=== PATIENT | male | born 1970 | race Caucasian/White ===

== ENCOUNTER 2019-06-08 16:05 | Emergency (ER) | payer BC ==
[2019-06-08] MEDS ORDERED: Albuterol 0.083% 2.5 MG/3 ML Neb Soln ONE (16:25)
[2019-06-08] MEDS ORDERED: Albuterol 0.083% 2.5 MG/3 ML Neb Soln NEB ONE (16:31)
[2019-06-08] MEDS ORDERED: Sodium Chloride 0.9% 1,000 ML IV ONE (16:38)
--- NOTE | 2019-06-08 16:38 | EDM.PDOC ---
ED HPI GENERAL MEDICAL PROBLEM - General Chief Complaint: General Time Seen by Provider: 06/08/19 16:05 Source of Information: Reports: Patient, EMS History Limitations: Reports: No Limitations - History of Present Illness INITIAL COMMENTS - FREE TEXT/NARRATIVE: Patient presents via ambulance after being trapped in a grain bin of corn. The corn had started to slide down the slope toward him and he couldn't keep ahead of it. At the highest it was up on his chest. He and helpers were able to free him somewhat so that he was only buried to mid-abdomen prior to EMS arrival. He then was pulled from the bin. He was partially submerged in corn for 45-50 minutes. He felt "numb and tingly" while in the corn and now just feels cold from the waist down. Denies any LOC. He is starting to cough from the moldy corn and has done this before so expects to have cough, aches and chills for a couple days. He was wearing a mask in the bin most of the time. 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 A source of the clots was not found. Treatments WEARING [employer]PAR[employer]: Reports: Oxygen, See EMS Report - Related Data Allergies Allergy/AdvReac Type Severity Reaction Status Date / Time No Known Drug Allergies Allergy Cannot Verified 06/08/19 16:15 Remember Home Meds: Home Meds Lisinopril 20 mg PO DAILY 06/08/19 [History] Rivaroxaban [Xarelto] 20 mg PO DAILY 06/08/19 [History] ED ROS GENERAL - Review of Systems Review Of Systems: See Below Constitutional: Denies: Fever, Chills, Malaise, Weakness, Diaphoresis HEENT: Denies: Throat Pain, Vision Change Respiratory: Reports: Cough (just starting in last few minutes). Denies: Shortness of Breath Cardiovascular: Denies: Chest Pain, Lightheadedness, Syncope Endocrine: Denies: Fatigue GI/Abdominal: Denies: Abdominal Pain, Diarrhea, Nausea, Vomiting : Denies: Dysuria Musculoskeletal: Denies: Neck Pain, Shoulder Pain, Arm Pain, Back Pain, Hand Pain, Leg Pain, Foot Pain Skin: Denies: Cyanosis (not normally), Jaundice, Mottled, Pallor, Diaphoresis Neurological: Denies: Confusion, Dizziness, Headache, Seizure, Syncope, Trouble Speaking, Difficulty Walking Psychiatric: Denies: Agitation, Anxiety, Confusion ED EXAM, GENERAL - Physical Exam Exam: See Below Exam Limited By: No Limitations General Appearance: Alert, WD/WN, No Apparent Distress Eye Exam: Bilateral Eye: EOMI, Normal Inspection, PERRL Ears: Normal External Exam, Hearing Grossly Normal Nose: Normal Inspection, No Blood Throat/Mouth: Normal Inspection, Normal Lips, Normal Oropharynx, Normal Voice, No Airway Compromise Head: Atraumatic, Normocephalic Neck: Normal Inspection, Full Range of Motion Respiratory/Chest: No Respiratory Distress, Lungs Clear, Normal Breath Sounds, No Accessory Muscle Use, Other (non-productive cough occasionally). No: Crackles, Rales, Rhonchi, Wheezing, Stridor Cardiovascular: Normal Peripheral Pulses, Regular Rate, Rhythm, No Edema, No Gallop, No JVD, No Murmur Peripheral Pulses: 2+: Radial (L), Radial (R), Dorsalis Pedis (L), Dorsalis Pedis (R) Back Exam: Normal Inspection, Full Range of Motion Extremities: Normal Range of Motion, Other (feet are mildly cyanotic with slightly delayed cap refill but good pulses. No pain. Sensation intact.) Neurological: Alert, Oriented, CN II-XII Intact, Normal Cognition, No Motor/ Sensory Deficits. No: Sensory/Motor Deficit Psychiatric: Normal Affect, Normal Mood Skin Exam: Warm, Dry, Intact, No Rash, Cyanosis (of feet as above) Course - Vital Signs Last Recorded V/S: Last Vital Signs Temp 100.2 F 06/08/19 17:00 Pulse 97 06/08/19 17:00 Resp 18 06/08/19 17:00 BP 129/63 06/08/19 17:00 Pulse Ox 97 06/08/19 17:00 - Orders/Labs/Meds Orders: Active Orders 24 hr Category Date Time Status RT Aerosol Therapy [RC] ASDIRECTED Care 06/08/19 16:31 Ordered Labs: Laboratory Tests 06/08/19 06/08/19 Range/Units 16:55 16:55 WBC 6.25 (5.00-10.00) 10^3/uL RBC 4.65 (4.50-6.00) 10^6/uL Hgb 14.9 (13.0-17.0) g/dL Hct 42.4 (40.0-52.0) % MCV 91.2 (82.0-92.0) fL MCH 32.0 H (27.0-31.0) pg MCHC 35.1 (32.0-36.0) g/dL RDW 13.0 (11.5-14.5) % Plt Count 169 (150-400) 10^3/uL MPV 8.9 (7.4-10.4) fL Immature Gran % (Auto) 0.8 (0.0-5.0) % Neut % (Auto) 72.3 H (50.0-70.0) % Lymph % (Auto) 16.3 L (20.0-40.0) % Upton % (Auto) 9.8 H (2.0-8.0) % Eos % (Auto) 0.3 L (1.0-3.0) % Baso % (Auto) 0.5 (0.0-1.0) % Immature Gran # (Auto) 0.05 (0.00-0.50) 10^3/uL Neut # (Auto) 4.52 (2.50-7.00) 10^3/uL Lymph # (Auto) 1.02 (1.00-4.00) 10^3/uL Upton # (Auto) 0.61 (0.10-0.80) 10^3/uL Eos # (Auto) 0.02 L (0.10-0.30) 10^3/uL Baso # (Auto) 0.03 (0.00-0.10) 10^3/uL Sodium 136 (136-145) mmol/L Potassium 4.0 (3.3-5.3) mmol/L Chloride 100 (98-115) mmol/L Carbon Dioxide 25.5 (21.0-32.0) mmol/L Anion Gap 14.5 (5-15) mmol/L BUN 12 (6-25) mg/dL Creatinine 0.91 (0.51-1.17) mg/dL Est Cr Clr Drug Dosing 114.17 mL/min Estimated GFR (MDRD) > 60 mL/min Glucose 106 H (75 - 99) mg/dL Calcium 8.7 (8.7-10.3) mg/dL Creatine Kinase 209 (26-276) U/L CK-MB (CK-2) 1.00 (0.00-4.30) ng/mL Meds: Medications Discontinued Medications Generic Name Dose Route Start Last Admin Trade Name Bryanna PRChidi Reason Stop Dose Admin Albuterol Confirm 06/08/19 16:25 06/08/19 16:55 Proventil Neb Soln Administered 06/08/19 16:26 Not Given Dose 2.5 mg .ROUTE .STK-MED ONE Albuterol 2.5 mg 06/08/19 16:31 06/08/19 16:32 Proventil Neb Soln NEB 06/08/19 16:32 2.5 mg ONETIME ONE Administration Sodium Chloride 1,000 mls @ 999 mls/hr 06/08/19 16:38 06/08/19 16:55 Normal Saline IV 06/08/19 17:38 999 mls/hr .BOLUS ONE Administration - Re-Assessments/Exams Free Text/Narrative Re-Assessment/Exam: 06/08/19 18:04 Lab and Xray are normal. Discussed case with Dr. Yandel Callaway who advised rectal temp and CK. Patient is feeling well now and feet are now pink with brisk cap refill. Legs still feel a little bit cool but much better per patient. Discussed findings and plan with patient. Discharged to home in stable condition. Departure - Departure Time of Disposition: 17:59 Disposition: Home, Self-Care 01 Condition: Good Clinical Impression: Extremity cyanosis, Exposure to mold - Discharge Information Referrals: PCP,Unknown [Primary Care Provider] - Forms: ED Department Discharge Additional Instructions: 1. Drink 8 cups of water daily. 2. Follow up with your PCP or return to ER if you have any problems. - My Orders Last 24 Hours: My Active Orders 06/08/19 16:31 RT Aerosol Therapy [RC] ASDIRECTED - Assessment/Plan Last 24 Hours: My Active Orders 06/08/19 16:31 RT Aerosol Therapy [RC] ASDIRECTED
--- NOTE | 2019-06-08 17:03 | CR ---
[id number] RAD/RAD Chest PA or AP 1V EXAM: SINGLE VIEW CHEST. INDICATION: COUGH COMPARISON: CORRELATION IS MADE WITH THE CAT SCAN OF JULY 22, 2018 FINDINGS: The lungs are clear. The cardiomediastinal contour is stable IMPRESSION: NO ACUTE PROCESS Tan Russ MD 06/08/19 [id number] Thank you for allowing us to participate in the care of your patient.
[2019-06-08 17:32] LABS: ANION GAP 14.5 mmol/L (5-15); CHLORIDE,CL 100 mmol/L (98-115); SODIUM,NA 136 mmol/L (136-145)
== END 2019-06-08 18:10 | disposition home or self-care (01) ==
LOC: KA.ED 16:05
DX: R23.0 Cyanosis (principal); Z77.120 Contact with and (suspected) exposure to mold (toxic); Z79.899 Other long term (current) drug therapy
CPT/HCPCS: 36415; 71045; 80048; 82550; 82553; 85025; 96360; 99285-25; J7030; J7613-GY; Q3014

== ENCOUNTER 2021-01-23 11:30 | Emergency (ER) | payer BC ==
[2021-01-23] MEDS: Sodium Chloride 0.9% 1,000 ML IV SCH (11:55)
[2021-01-23] MEDS: Iopamidol 755 Mg/ML 75 ML Bottle IVPUSH ONE (12:09)
[2021-01-23] MEDS: Sodium Chloride 0.9% 100 ML IV SCH (12:10)
--- NOTE | 2021-01-23 12:11 | EDM.PDOC ---
ED HPI GENERAL MEDICAL PROBLEM - General Stated Complaint: A FIB Time Seen by Provider: 01/23/21 11:58 Source of Information: Reports: Patient, Provider History Limitations: Reports: No Limitations - History of Present Illness INITIAL COMMENTS - FREE TEXT/NARRATIVE: Patient presents with tachycardia. He was seeing the high school math tutor, Dr. Woods for routine follow up today and was found to have HR of 160. He has been seeing him to rule out any coagulopathies following a PE. No coagulopathies have been found but Dr. Minor wants to have a CT to rule out PE today since he has the tachycardia along with a bit of dyspnea. He had a EKG showing sinus tach. Dr. No called me with this info. Patient says the dyspnea is not worse than his mild baseline symptoms. He denies chest pain. Labs from clinic today, CBC, CMP, D-dimer were all normal except glucose of 119. Chest Pain Score (Numeric/FACES): 5 - Related Data Allergies Allergy/AdvReac Type Severity Reaction Status Date / Time No Known Drug Allergies Allergy Cannot Verified 06/08/19 16:15 Remember Home Meds: Home Meds Rivaroxaban [Xarelto] 20 mg PO DAILY 06/08/19 [History] lisinopriL [Lisinopril] 20 mg PO DAILY 06/08/19 [History] Past Medical History HEENT History: Reports: None Cardiovascular History: Reports: Hypertension Respiratory History: Reports: PE Gastrointestinal History: Reports: GERD Musculoskeletal History: Reports: Fracture - Past Surgical History Head Surgeries/Procedures: Reports: None HEENT Surgical History: Reports: Oral Surgery Cardiovascular Surgical History: Reports: None Respiratory Surgical History: Reports: None GI Surgical History: Reports: Colonoscopy, EGD Musculoskeletal Surgical History: Reports: Other (See Below) Other Musculoskeletal Surgeries/Procedures:: elbow and leg fractures fixed Social & Family History - Family History Family Medical History: No Pertinent Family History ED ROS GENERAL - Review of Systems Review Of Systems: See Below Constitutional: Denies: Fever, Malaise, Weakness, Decreased Appetite HEENT: Reports: No Symptoms Respiratory: Denies: Shortness of Breath (nothing unusual), Cough Cardiovascular: Denies: Chest Pain, Lightheadedness, Syncope GI/Abdominal: Denies: Abdominal Pain, Vomiting : Denies: Dysuria Musculoskeletal: Reports: No Symptoms Skin: Reports: No Symptoms Neurological: Denies: Trouble Speaking, Difficulty Walking Psychiatric: Denies: Agitation, Anxiety, Confusion ED EXAM, GENERAL - Physical Exam Exam: See Below Exam Limited By: No Limitations General Appearance: Alert, WD/WN, No Apparent Distress Eye Exam: Bilateral Eye: EOMI, Normal Inspection, PERRL Ears: Normal External Exam, Hearing Grossly Normal Nose: Normal Inspection, No Blood Throat/Mouth: Normal Inspection, Normal Lips, Normal Voice, No Airway Compromise Head: Atraumatic, Normocephalic Neck: Normal Inspection, Full Range of Motion Respiratory/Chest: No Respiratory Distress, Lungs Clear, Normal Breath Sounds Cardiovascular: Regular Rate, Rhythm (tachy originally but normal for about 90 minutes now.), No Murmur Back Exam: Normal Inspection, Full Range of Motion. No: CVA Tenderness (L), CVA Tenderness (R) Extremities: Normal Inspection, Normal Range of Motion Neurological: Alert, Oriented, Normal Cognition, No Motor/Sensory Deficits Psychiatric: Normal Affect, Normal Mood Skin Exam: Warm, Dry, Intact, Normal Color, No Rash Course - Vital Signs Last Recorded V/S: Last Vital Signs Temp Pulse 76 01/23/21 13:00 Resp 19 01/23/21 13:00 BP 104/62 01/23/21 13:00 Pulse Ox 97 01/23/21 13:00 - Orders/Labs/Meds Orders: Active Orders 24 hr Category Date Time Status Sodium Chloride 0.9% [Normal Saline] 1,000 ml Med 01/23/21 11:30 Ordered IV ASDIRECTED Sodium Chloride 0.9% [Normal Saline] 100 ml Med 01/23/21 12:30 Active IV ASDIRECTED Medication Orders Sodium Chloride (Normal Saline) 100 mls @ 200 mls/hr IV ASDIRECTED MARTIN Last Admin: 01/23/21 12:10 Dose: 200 mls/hr Documented by: ROSA Sodium Chloride (Normal Saline) 1,000 mls @ 1,000 mls/hr IV ASDIRECTED MARTIN Stop: 01/23/21 23:59 Last Admin: 01/23/21 11:55 Dose: 1,000 mls/hr Documented by: HEAVEN Labs: Laboratory Tests 01/23/21 Range/Units 11:45 Troponin I High Sens 13.600 (0-76.000) pg/mL Meds: Medications Generic Name Dose Route Start Last Admin Trade Name Freq PRN Reason Stop Dose Admin Sodium Chloride 100 mls @ 200 mls/hr 01/23/21 12:30 01/23/21 12:10 Normal Saline IV 200 mls/hr ASDIRECTED MARTIN Administration Sodium Chloride 1,000 mls @ 1,000 mls/hr 01/23/21 11:30 01/23/21 11:55 Normal Saline IV 01/23/21 23:59 1,000 mls/hr ASDIRECTED MARTIN Administration Discontinued Medications Generic Name Dose Route Start Last Admin Trade Name Bryanna PRN Reason Stop Dose Admin Iopamidol 75 ml 01/23/21 12:18 01/23/21 12:09 Iopamidol 755 Mg/Ml 75 Ml Bottle IVPUSH 01/23/21 12:19 75 ml ONETIME ONE Administration - Re-Assessments/Exams Free Text/Narrative Re-Assessment/Exam: 01/23/21 12:[address], patient was getting IV fluids and spontaneously converted to NSR with HR of 67. 01/23/21 13:54 CT identifies no PE. Troponin is negative. HR continues to run in normal range and patient is feeling fine. He has been given a liter of saline. We discussed findings and recommendations. He will follow up with his PCP next week for recheck of this. Discharged to home in stable condition. 01/23/21 14:01 We did discuss that if he could make some lifestyle changes concerning nutrition and exercise he would likely see improvement in his weight, cardiovascular risk. Departure - Departure Time of Disposition: 13:48 Disposition: Home, Self-Care 01 Condition: Good Clinical Impression: Tachycardia with heart rate 141-160 beats per minute Referrals: Karla Victor MD [Primary Care Provider] - Additional Instructions: Continue drinking at least 8 cups of water daily. Continue your medications as directed. Follow up with your PCP next week to recheck EKG and heart rate. Recheck sooner with PCP or ER if any problems or worsening. Sepsis Event Note (ED) - Focused Exam Vital Signs: Vital Signs Pulse Resp BP Pulse Ox 01/23/21 13:00 76 19 104/62 97 01/23/21 12:46 69 20 104/62 95 01/23/21 12:31 73 20 119/66 01/23/21 12:16 72 20 131/93 H 01/23/21 12:01 78 22 H 130/80 01/23/21 11:46 131 H 18 126/77 97 01/23/21 11:30 157 H 24 H 111/75 - My Orders Last 24 Hours: My Active Orders 01/23/21 11:30 Sodium Chloride 0.9% [Normal Saline] 1,000 ml IV ASDIRECTED 01/23/21 12:30 Sodium Chloride 0.9% [Normal Saline] 100 ml IV ASDIRECTED - Assessment/Plan Last 24 Hours: My Active Orders 01/23/21 11:30 Sodium Chloride 0.9% [Normal Saline] 1,000 ml IV ASDIRECTED 01/23/21 12:30 Sodium Chloride 0.9% [Normal Saline] 100 ml IV ASDIRECTED
--- NOTE | 2021-01-23 12:45 | CT ---
[id number] CT/CTA Chest EXAM: CT ANGIOGRAM CHEST INDICATION: Multiple subsegmental pulmonary emboli without cor pulmonale. COMPARISON: November 17, 2018. DISCUSSION: No pulmonary embolus is identified, but the degree of contrast opacification of the pulmonary arteries limits assessment. Mild bronchial wall thickening compatible with bronchitis. The lungs are clear with no nodule, infiltrate or mass identified.No pleural or pericardial effusion. Normal heart size. No mediastinal, hilar or axillary lymphadenopathy. Degenerative changes throughout the thoracic spine with associated osseous central stenosis at C6-C7. IMPRESSION: 1. Contrast timing mildly limits sensitivity, but no large or central pulmonary emboli are identified. Gama Madison MD 01/23/21 [id number] Thank you for allowing us to participate in the care of your patient.
== END 2021-01-23 14:20 | disposition home or self-care (01) ==
LOC: KA.ED 11:30
DX: R00.0 Tachycardia, unspecified (principal); I10 Essential (primary) hypertension; Z79.899 Other long term (current) drug therapy; Z79.01 Long term (current) use of anticoagulants
CPT/HCPCS: 71275; 84484; 93005; 99284; 99285-25; J7030; Q9967

== ENCOUNTER 2021-11-27 19:35 | Emergency (ER) | payer BC ==
[2021-11-27 21:04] LABS: ANION GAP 12.4 mmol/L (5-15); CHLORIDE,CL 100 mmol/L (98-107); SODIUM,NA 137 mmol/L (136-145)
[2021-11-27] MEDS: Sodium Chloride 0.9% 50 ML IV SCH (21:21)
[2021-11-27] MEDS: Iopamidol 755 Mg/ML 100 ML Bottle IV ONE (21:21)
[2021-11-27] MEDS: Ketorolac 30 MG/ML SDV IVPUSH ONE (21:57)
[2021-11-27] MEDS: Ketorolac 30 MG/ML SDV ONE (21:58)
== END 2021-11-27 22:12 | disposition home or self-care (01) ==
LOC: KA.ED 19:35
DX: S39.81XA Other specified injuries of abdomen, initial encounter (principal); I10 Essential (primary) hypertension; K21.9 Gastro-esophageal reflux disease without esophagitis; Z79.899 Other long term (current) drug therapy; W55.22XA Struck by cow, initial encounter
CPT/HCPCS: 36415; 74177; 80053; 81001; 85025; 96374; 99283; 99284-25; J1885; Q9967

== ENCOUNTER 2023-08-11 08:04 | Day surgery (SDC) | payer BC ==
[~2023-08-11 08:04] MED LIST: Sodium Chloride 0.9% 10 ML Syringe FLUSH PRN
[2023-08-11] MEDS ORDERED: Midazolam 1 MG/ML 2 ML SDV IV ONE (08:05)
[2023-08-11] MEDS ORDERED: Propofol 200 MG/20 ML SDV IV ONE (08:05)
[2023-08-11] MEDS: Sodium Chloride 0.9% 1,000 ML IV SCH (08:31)
[2023-08-11] MEDS ORDERED: Glycopyrrolate 0.2 MG/ML SDV ONE (09:04)
[2023-08-11] MEDS ORDERED: Propofol 200 MG/20 ML SDV ONE ×2 (09:04→09:49)
[2023-08-11] MEDS ORDERED: Midazolam 1 MG/ML 2 ML SDV ONE ×2 (09:04→09:11)
[2023-08-11] MEDS ORDERED: Ketamine 200 MG/20 ML MDV ONE (09:05)
[2023-08-11] MEDS ORDERED: Lidocaine 2% 5 ML SDV ONE (09:05)
== END 2023-08-11 12:23 | disposition home or self-care (01) ==
LOC: KA.SDS 08:04
PROVIDERS: ATTEND Surgery
DX: K21.00 Gastro-esophageal reflux disease with esophagitis, without bleeding (principal); K29.50 Unspecified chronic gastritis without bleeding; K22.70 Barrett's esophagus without dysplasia; K31.A19 Gastric intestinal metaplasia without dysplasia, unspecified site; Z79.82 Long term (current) use of aspirin; Z79.899 Other long term (current) drug therapy
CPT/HCPCS: 00731; 82947; J2250; J2704; J3490; J7030

== ENCOUNTER 2024-01-11 20:37 | Emergency (ER) | payer BC ==
[2024-01-11] MEDS ORDERED: Sodium Chloride 0.9% 10 ML Syringe FLUSH PRN (20:44)
[2024-01-11] MEDS: Ondansetron 4 MG/2 ML SDV IVPUSH ONE (20:50)
[2024-01-11] MEDS: HYDROmorphone 1 MG/ML Syringe IVPUSH ONE (20:51)
[2024-01-11 20:56] LABS: BASOPHILS ABSOLUTE AUTO 0.03 10^3/uL (0.00-0.10); BASOPHILS PERCENT AUTO 0.3 % (0.0-1.0); EOSINOPHILS ABSOLUTE AUTO 0.17 10^3/uL (0.10-0.30); EOSINOPHILS PERCENT AUTO 1.8 % (1.0-3.0); HEMATOCRIT 43.8 % (40.0-52.0); HEMOGLOBIN 15.1 g/dL (13.0-17.0); IMMATURE GRAN ABSOLUTE AUTO 0.05 10^3/uL (0.00-0.50); IMMATURE GRAN PERCENT AUTO 0.5 % (0.0-5.0); LYMPHOCYTES ABSOLUTE AUTO 2.08 10^3/uL (1.00-4.00); LYMPHOCYTES PERCENT AUTO 22.3 % (20.0-40.0); MEAN CORPUSCULAR HEMOGLOBIN 31.1 pg (27.0-31.0); MEAN CORPUSCULAR HGB CONC 34.5 g/dL (32.0-36.0); MEAN CORPUSCULAR VOLUME 90.1 fL (82.0-92.0); MEAN PLATELET VOLUME 9.5 fL (7.4-10.4); MONOCYTES ABSOLUTE AUTO 0.69 10^3/uL (0.10-0.80); MONOCYTES PERCENT AUTO 7.4 % (2.0-8.0); NEUTROPHILS ABSOLUTE AUTO 6.31 10^3/uL (2.50-7.00); NEUTROPHILS PERCENT AUTO 67.7 % (50.0-70.0); PLATELET COUNT,PLT 239 10^3/uL (150-400); RED BLOOD CELL COUNT 4.86 10^6/uL (4.50-6.00); RED CELL DISTRIBUTION WIDTH 13.1 % (11.5-14.5); WHITE BLOOD CELL COUNT,WBC 9.33 10^3/uL (5.00-10.00)
[2024-01-11] MEDS: Sodium Chloride 0.9% 50 ML IV SCH (21:40)
[2024-01-11] MEDS: Iopamidol 755 Mg/ML 100 ML Bottle IV ONE (21:40)
[2024-01-11 21:44] LABS: ALANINE AMINOTRANSFERASE,ALT 24 U/L (14-63); ALBUMIN 3.25 g/dL (3.40-5.00); ALKALINE PHOSPHATASE 82 U/L (46-116); ANION GAP 10.8 mmol/L (5-15); ASPARTATE AMNIOTRANSFERASE,AST 21 U/L (15-37); BILIRUBIN TOTAL 0.6 mg/dL (0.2-1.0); BLOOD UREA NITROGEN,BUN 14 mg/dL (7-18); CALCIUM 8.5 mg/dL (8.7-10.3); CARBON DIOXIDE,CO2 28.5 mmol/L (21.0-32.0); CHLORIDE,CL 102 mmol/L (98-107); CREATININE 0.96 mg/dL (0.51-1.17); GLUCOSE RANDOM 131 mg/dL (70-140); POTASSIUM,K 4.3 mmol/L (3.5-5.1); PROTEIN TOTAL,TP 7.2 g/dL (6.4-8.2); SODIUM,NA 137 mmol/L (136-145)
[2024-01-11] MEDS: Sodium Chloride 0.9% 1,000 ML IV ONE (21:45)
[2024-01-11 21:46] LABS: APPEARANCE,URINE CLEAR (CLEAR); BILIRUBIN,URINE NEGATIVE (NEGATIVE); GLUCOSE,URINE NEGATIVE (NEGATIVE); KETONES,URINE NEGATIVE (NEGATIVE); LEUKOCYTE ESTERASE,URINE NEGATIVE (NEGATIVE); NITRITE,URINE NEGATIVE (NEGATIVE); OCCULT BLOOD,URINE MODERATE (NEGATIVE); PROTEIN,URINE 30 mg/dL (NEGATIVE)
[2024-01-11 21:47] LABS: ESTIMATED GFR 95 mL/min (>=60)
[2024-01-11 22:00] LABS: COLOR,URINE DARK YELLOW (YELLOW); RBC,URINE 0-5 /HPF (0-5)
[2024-01-11 22:01] LABS: BACTERIA,URINE RARE /HPF (NONE TO FEW); EPITHELIAL CELLS,URINE RARE /LPF; GRANULAR CASTS,URINE FEW; MUCUS,URINE RARE /LPF (NEGATIVE); WBC,URINE 20-30 /HPF (0-5)
[2024-01-11 22:02] LABS: HYALINE CASTS,URINE RARE
== END 2024-01-11 21:50 ==
LOC: KA.ED 20:37
DX: S22.41XA Multiple fractures of ribs, right side, initial encounter for closed fracture (principal); S27.321A Contusion of lung, unilateral, initial encounter; J93.11 Primary spontaneous pneumothorax; I10 Essential (primary) hypertension; K21.9 Gastro-esophageal reflux disease without esophagitis; Z79.899 Other long term (current) drug therapy; V86.99XA Unspecified occupant of other special all-terrain or other off-road motor vehicle injured in nontraffic accident, initial encounter
CPT/HCPCS: 36415; 71045; 71260; 74177; 80053; 81001; 84484; 85025; 96374; 96375; 99285-25; J1170; J2405; J3490; J7030; Q3014; Q9967

== ENCOUNTER 2024-09-26 16:20 | Emergency (ER) | payer BC ==
[2024-09-26] MEDS ORDERED: Sodium Chloride 0.9% 10 ML Syringe FLUSH PRN (16:29)
[2024-09-26 16:43] LABS: BASOPHILS ABSOLUTE AUTO 0.04 10^3/uL (0.00-0.10); BASOPHILS PERCENT AUTO 0.7 % (0.0-1.0); EOSINOPHILS ABSOLUTE AUTO 0.25 10^3/uL (0.10-0.30); EOSINOPHILS PERCENT AUTO 4.3 % (1.0-3.0); HEMATOCRIT 39.6 % (40.0-52.0); HEMOGLOBIN 13.6 g/dL (13.0-17.0); IMMATURE GRAN ABSOLUTE AUTO 0.02 10^3/uL (0.00-0.04); IMMATURE GRAN PERCENT AUTO 0.3 % (0.0-0.4); MEAN CORPUSCULAR HEMOGLOBIN 31.2 pg (27.0-31.0); MEAN CORPUSCULAR HGB CONC 34.3 g/dL (32.0-36.0); MEAN CORPUSCULAR VOLUME 90.8 fL (82.0-92.0); MEAN PLATELET VOLUME 8.7 fL (7.4-10.4); MONOCYTES ABSOLUTE AUTO 0.49 10^3/uL (0.10-0.80); MONOCYTES PERCENT AUTO 8.4 % (2.0-8.0); NEUTROPHILS ABSOLUTE AUTO 3.64 10^3/uL (2.50-7.00); NEUTROPHILS PERCENT AUTO 62.3 % (50.0-70.0); PLATELET COUNT,PLT 177 10^3/uL (150-400); RED BLOOD CELL COUNT 4.36 10^6/uL (4.50-6.00); RED CELL DISTRIBUTION WIDTH 13.7 % (11.5-14.5); WHITE BLOOD CELL COUNT,WBC 5.84 10^3/uL (5.00-10.00)
[2024-09-26 17:01] LABS: ALBUMIN 3.27 g/dL (3.40-5.00); ANION GAP 10.9 mmol/L (5-15); BILIRUBIN TOTAL 0.4 mg/dL (0.2-1.0); CALCIUM 8.9 mg/dL (8.7-10.3); CREATININE 0.93 mg/dL (0.51-1.17); EST CRCL DRUG DOSING (CG) 102.62 mL/min; POTASSIUM,K 3.9 mmol/L (3.5-5.1); PROTEIN TOTAL,TP 7.1 g/dL (6.4-8.2)
[2024-09-26 17:32] LABS: INFLUENZA A NAA NEGATIVE (NEGATIVE); INFLUENZA B NAA NEGATIVE (NEGATIVE)
[2024-09-26 17:34] LABS: CORONAVIRUS COVID-19 NAA POSITIVE (NEGATIVE)
[2024-09-26 17:40] VITALS: PULSE 65
[2024-09-26 17:42] VITALS: BP 127/68
== END 2024-09-26 17:49 | disposition home or self-care (01) ==
LOC: KA.ED 16:20
DX: U07.1 COVID-19 (principal); R07.89 Other chest pain; R91.8 Other nonspecific abnormal finding of lung field; I10 Essential (primary) hypertension; Z79.82 Long term (current) use of aspirin; Z79.899 Other long term (current) drug therapy
CPT/HCPCS: 0240U; 36415; 71046; 80053; 84484; 85025; 85379; 99285

== ENCOUNTER 2025-01-30 19:30 | Emergency (ER) | payer BC ==
[2025-01-30] MEDS: Sodium Chloride 0.9% 250 ML SCH ×2 (20:00→20:10)
[2025-01-30] MEDS: Sodium Chloride 0.9% 250 ML ONE ×3 (20:37→20:40)
[2025-01-30] MEDS: Tetracaine HCl/PF 0.5% 4 ML Bottle EYERT ONE (21:25)
[2025-01-30] MEDS: Ciprofloxacin 0.3% Ophth Soln 5 ML Bottle EYERT SCH (21:39)
== END 2025-01-30 21:45 | disposition home or self-care (01) ==
LOC: KA.ED 19:30
DX: T26.51XA Corrosion of right eyelid and periocular area, initial encounter (principal); I10 Essential (primary) hypertension; K21.9 Gastro-esophageal reflux disease without esophagitis; Z79.899 Other long term (current) drug therapy; Z79.82 Long term (current) use of aspirin
CPT/HCPCS: 99283; A9270; J7050; J3490